=== PATIENT | male | born 1935 | race Two or more races ===

== ENCOUNTER 2024-03-08 12:06 | Emergency (ER) | payer MEDICARE, MEDICAID, SELFPAY ==
[2024-03-08 12:07] VITALS: BMI 24.5
[2024-03-08 12:13] VITALS: BP 108/68; PULSE 58; RESP 19; TEMP 36.7; O2SAT 97
--- NOTE | 2024-03-08 12:33 | XR_ITS ---
Examination: Humerus 2 views right Technique: Humerus, AP lateral 2 views Date and time of exam: March 08, 2024 1255 hrs. Indications: Patient fell yesterday with injury to the arm, arm pain. Findings: Acute impacted fracture humeral neck Shaft of the humerus intact Impression: Acute impacted fracture humeral neck
--- NOTE | 2024-03-08 12:33 | XR_ITS ---
Examination: AP chest single view Technique: Upright AP chest single view Exam date and time: February 07, 2024 1256 hrs. Comparison September 06, 2018 Indications: Chest pain after falling 2 days ago Findings: Mild enlargement cardiac contour No pneumothorax Minor subsegmental atelectasis right base Clavicles ribs appear grossly intact Impression: No pneumothorax
--- NOTE | 2024-03-08 12:33 | EKG_ITS ---
[facility] Test Date: 2024-03-08 Pat Name: JOSELIN MOLINA Department: Room: - Gender: Male [employer]: : 1935 Requested By: Venu Galvez Order Number: [id number] Reading MD: Venu Galvez Measurements Intervals [place] Rate: 56 P: NM: QRS: 19 QRSD: 82 T: 79 QT: 433 QTc: 419 Interpretive Statements ATRIAL FIBRILLATION WITH SLOW VENTRICULAR RESPONSE ABNORMAL RHYTHM ECG Compared to ECG 07/24/2022 09:52:48 No significant changes /store/S0/[id number]/ecg/[id number].pdf
--- NOTE | 2024-03-08 12:34 | PD.EDUPEX ---
Upper Extremity Injury RME/HPI General Chief Complaint: Extremity Injury, Upper Stated Complaint: RIGHT ARM PAIN S/P FALL 2 DAYS AGO Time Seen by Provider: 03/08/24 12:14 Arrival date/time: 03/08/24 12:06 RME / HPI RME / HPI narrative: 89-year-old male patient with significant history of Parkinson, gout, hypertension, chronic anemia, diabetes mellitus, was brought in by family for evaluation regarding fall. Patient sustained a fall about 2 days ago, hitting his right arm, resulting to bruising. It happened about 2 days ago. Patient was also noted to have chronic anemia according to the family. No vomiting blood no blood in the stool. Patient denies any LOC no nausea no vomiting. Patient is not taking any bladder. Related Data Home Medications ?Medication ?Instructions ?Recorded ?Confirmed carvedilol 3.125 mg tablet 6.25 mg PO BID 09/06/18 07/24/22 liothyronine 5 mcg tablet 5 mcg PO BID 09/06/18 07/24/22 losartan 100 mg tablet 100 mg PO QDAY 09/06/18 07/24/22 allopurinol 100 mg tablet 100 mg PO QDAY 07/24/22 07/24/22 carbidopa 25 mg tablet (Lodosyn) 25 mg PO Q8H 07/24/22 07/24/22 ciprofloxacin HCl 500 mg tablet 500 mg PO BID 07/24/22 07/24/22 (Cipro) doxazosin 4 mg tablet 4 mg PO QDAY 07/24/22 07/24/22 pioglitazone 15 mg tablet 15 mg PO QDAY 07/24/22 07/24/22 tamsulosin 0.4 mg capsule (Flomax) 0.4 mg PO BID 07/24/22 07/24/22 Previous Rx's ?Medication ?Instructions ?Recorded ferrous sulfate, dried 144 mg (45 144 mg PO TID #90 tabs 03/08/24 mg iron) tablet,extended release (Slow Release Iron) ibuprofen 600 mg tablet 600 mg PO TID PRN pain #30 tabs 03/08/24 Allergies Allergy/AdvReac Type Severity Reaction Status Date / Time No Known Allergies Allergy Unknown Verified 03/08/24 12:09 Review of Systems Review of Systems Narrative Review of Systems: Review of system reviewed and within normal limits except mentioned in HPI ED Exam Narrative Physical exam: VITAL SIGNS: Reviewed. GENERAL APPEARANCE: Alert and interactive, follows commands, no acute distress, HEAD AND FACE: Non-traumatic. ENT: PERRL, pale conjunctiva, eyelid no trauma, Mucous membrane moist. NECK: Supple, nontender, no nuchal rigidity. CHEST: No tenderness, no crepitus, no paradoxical movement, no retractions. LUNGS: Clear, well ventilated, symmetric, no rales, no wheezing, no ronchi, no stridor, good breath sounds bilaterally. HEART: Regular rate, regular rhythm, no murmur, no gallops. ABDOMEN: Soft, positive bowel sounds, nondistended, no guarding, nontender, no rebound, no masses, RECTAL: Deferred. GENITAL: Deferred. NEUROLOGICAL: Gross motor function intact sensory function intact, Appropriate for age. MUSCULOSKELETAL: low back nontender, full range of motion. EXTREMITIES: Right arm bruising, no deformity, with limitation range of motion. SKIN: Color pale, dry, no rash, no lacerations, no abrasions, no contusions. LYMPHATICS: Deferred. Course Quality Measures none Orders Category Date Time Status EKG (ED ONLY) *Do not use* NOW Care 03/08/24 12:33 Completed Occult Blood,Stool (Nursing) ONCE Care 03/08/24 12:33 Active sling [Splint / Immobilizer] STAT Care 03/08/24 15:[address] head/brain wo con Stat Exams 03/08/24 12:37 Completed EKG (ED Only) Stat Exams 03/08/24 12:33 Draft XR chest 1V Stat Exams 03/08/24 12:33 Completed XR humerus RT min 2V Stat Exams 03/08/24 12:33 Completed CBC Stat Lab 03/08/24 12:44 Completed Comprehensive Metabolic Panel Stat Lab 03/08/24 12:44 Completed Partial Thromboplastin Time Stat Lab 03/08/24 12:44 Completed Type and Screen Stat Lab 03/08/24 12:44 Completed Urinalysis Stat Lab 03/08/24 15:14 Completed Vital Signs Vital signs: Vital Signs Temperature 98.0 F 03/08/24 12:13 Pulse Rate 58 L 03/08/24 12:13 Respiratory Rate 19 03/08/24 12:13 Blood Pressure 108/68 03/08/24 12:13 Pulse Oximetry (%) 97 03/08/24 12:13 Oxygen Delivery Method Room Air 03/08/24 12:13 Extremity Injury MDM Narrative MDM Narrative:: 89-year-old male patient with significant history of Parkinson, gout, hypertension, chronic anemia, diabetes mellitus, was brought in by family for evaluation regarding fall. Patient sustained a fall about 2 days ago, hitting his right arm, resulting to bruising. It happened about 2 days ago. Patient was also noted to have chronic anemia according to the family. No vomiting blood no blood in the stool. Patient denies any LOC no nausea no vomiting. Patient is not taking any bladder. X-ray of the right humerus showed minimally displaced fracture of the humeral neck, I did not notice any dislocation of the shoulder joint. Patient was placed on a sling. Laboratory workup significant for hemoglobin of 8.9, hematocrit for 25.8. The rest of the labs unremarkable. Spoke with Dr. Gonzalez, orthopedic surgeon on-call, who agrees to have the patient follow-up in his clinic next week. Patient data External records reviewed:: None Clinical information provided by:: patient Social determinants that could affect healthcare access:: none Patient has the following chronic illnesses:: History of anemia, How is presenting disease/condition affected by chronic disease/condition?: exacerbated by Evaluation data The following diagnostics were reviewed and interpreted by me:: lab results Lab and/or radiology exams considered but not ordered:: None Interpretation Summary: X-ray of the right humerus showed minimally displaced fracture of the humeral neck, I did not notice any dislocation of the shoulder joint. Patient was placed on a sling. Laboratory workup significant for hemoglobin of 8.9, hematocrit for 25.8. The rest of the labs unremarkable. Medications / Prescriptions Medications or Prescriptions considered but not ordered:: None Medication administrations:: None Consultations Consultation(s) initiated? (list below): Yes Consultation #1 (Physician, Specialty, Details): Dr Gonzalez thank you Dr Gonzalez Diagnosis Upper Extremity Injury Differential Diagnosis: dislocation of shoulder, fracture of humerus and fracture of clavicle Most likely diagnosis given after review of the tests above:: Fracture of the right humeral neck, status post fall, chronic anemia Admission Indicated Admission indicated?: not indicated Explain why admission is indicated or not indicated:: Stable Admission Request Was there a request for admission?: No Disposition Plan Disposition Plan: Discharge Discharge Attestation Discharge Attestation: The patient and all family members were given an opportunity to ask questions and understood the discharge instructions. Discharge instructions specifically effects, indications for sooner follow up or return to the emergency department, and the expected course of current diagnosis. Patient condition: Stable Discharge Plan Plan Patient Disposition: HOME (Self Care) Disposition Comment: Stable Prescriptions/Referrals Prescriptions/Med Rec: New ibuprofen 600 mg tablet 600 mg PO TID PRN (Reason: pain) Qty: 30 0RF Slow Release Iron 144 mg (45 mg iron) tablet extended release 144 mg PO TID Qty: 90 0RF No Action liothyronine 5 mcg Tablet 5 mcg PO BID carvedilol 3.125 mg Tablet 6.25 mg PO BID losartan 100 mg Tablet 100 mg PO QDAY pioglitazone 15 mg Tablet 15 mg PO QDAY allopurinol 100 mg Tablet 100 mg PO QDAY ciprofloxacin HCl [Cipro] 500 mg Tablet 500 mg PO BID carbidopa [Lodosyn] 25 mg Tablet 25 mg PO Q8H tamsulosin [Flomax] 0.4 mg Capsule 0.4 mg PO BID doxazosin 4 mg Tablet 4 mg PO QDAY Referrals: Lisa Leslie [Primary Care Provider] - In 1 week Ricky Gonzalez MD [Physician] - In 1 week Problem List Clinical Impression: Fracture of neck of humerus, Fall, Chronic anemia Patient/Caregiver Discharge Instructions Education Materials: ED Fracture, Shoulder Additional Instructions: Thank you for the opportunity for serving you today. You are stable for discharged . You are advised to: Follow-up with your PCP in 1 to 2 days Follow-up with Dr. Gonzalez, orthopedic surgeon on-call, next week please call ahead for appointment Return to ED for worsening of symptoms Increase oral fluids Take medication as prescribed Print Language: Citizen Of [place] Stand Alone Forms: [employer] Award Info., Patient Portal Info Letter
--- NOTE | 2024-03-08 12:37 | XR_ITS ---
Examination: CT brain head without contrast. 2-D sagittal coronal reconstructions Date and time of exam:March 08, 2024 1358 hrs. Indications: Patient fell 2 days ago with injury to the head, head pain CTDI: vol (mGy):51 DLP: (mGycm):1089 Technique: Multiple CT axial sections of the brain have been obtained, 5 mm slice thickness. Contrast has not been administered. 2-D sagittal, coronal reconstructions have been obtained Low dose protocols were performed. One or more of the following dose reduction techniques were used; automated exposure control, adjustment of the mA and/or KV according to patient size, use of iterative reconstruction technique. Findings: No significant ventricular enlargement. 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 No mass effect or midline shift Basal cisterns are not remarkable. Fourth ventricle is midline. Cranial vault intact. Impression: Negative for acute hemorrhage, mass effect or midline shift
[2024-03-08 12:59] LABS: Basophils # (Auto) 0.1 Thou/mm3 (0.0-0.2); Basophils % (Auto) 1 % (0-2.5); Eosinophils # (Auto) 0.1 Thou/mm3 (0.0-0.5); Eosinophils % (Auto) 1 % (0-10); Hematocrit 25.8 % (41.0-53.0); Hemoglobin 8.9 g/dL (13.5-16.0); Immature Granulocytes % (Auto) 0 % (0-0); Immature Granulocytes Auto 0.02 Thou/mm3 (0.00-0.00); Lymphocytes # (Auto) 1.1 Thou/mm3 (1.0-4.8); Lymphocytes % (Auto) 17 % (10-50); Mean Corpuscular HGB Conc 34.5 g/dl (31.0-37.0); Mean Corpuscular Volume 96 fL (80-100); Monocytes # (Auto) 0.6 Thou/mm3 (0.0-0.8); Monocytes % (Auto) 9 % (0-12); Neutrophils # (Auto) 4.8 Thou/mm3 (1.8-7.7); Neutrophils % (Auto) 72 % (37-80); Nucleated Red Blood Cell % 0 /100 WBC (0); Platelet Count 142 Thou/mm3 (140-440); RDW Standard Deviation 51.5 fL (35.1-43.9); White Blood Count 6.7 Thou/mm3 (3.8-10.6)
[2024-03-08 13:13] LABS: Alanine Aminotransferase 12 U/L (10-49); Albumin/Globulin Ratio 1.7 (1.2-2.2); Alkaline Phosphatase 97 U/L (46-116); Anion Gap 6 (7-16); Aspartate Amino Transferase 19 U/L (0-34); BUN/Creatinine Ratio 28 Ratio (12-20); Bilirubin,Total 0.8 mg/dL (0.3-1.2); Blood Urea Nitrogen 36 mg/dL (9-23); Calcium 9.1 mg/dL (8.3-10.6); Calcium (Corrected) 9.1 mg/dL (8.5-10.1); Carbon Dioxide 26.4 mMol/L (20.0-31.0); Chloride 108 mMol/L (98-107); Creatinine (Component) 1.3 mg/dL (0.6-1.3); Estimated Creatinine Clearance 28.5 mL/min (>60); Globulin 2.3 gm/dL (2.3-3.5); Glucose 232 mg/dL (74-106); Osmolality,Calculated 294 (275-295); Potassium 3.9 mMol/L (3.4-5.1); Sodium 140 mMol/L (136-145); Total Protein 6.3 gm/dL (5.7-8.2); eGFR 53 See Note
[2024-03-08 15:27] LABS: Collection Type, Urine Clean Catch; Squamous Epithelial Cell,Urine 0 /hpf (0-5)
[2024-03-08 15:31] LABS: Bilirubin,Urine Negative (Negative); Blood,Urine Negative (Negative); Clarity,Urine Clear (Clear/Hazy); Color,Urine Yellow (Lt Yel-Yel); Glucose, Urine Negative (Negative); Ketones,Urine Negative (Negative); Leukocyte Esterase,Urine Negative (Negative); Nitrite,Urine Negative (Negative); PH,Urine 5.5 (5.0-7.0); Protein,Urine Trace (Neg - Trace); RBC,Urine 5 /hpf (0-3); Specific Gravity,Urine 1.022 (1.001-1.035); WBC,Urine 1 /hpf (0-5)
== END 2024-03-08 17:43 | disposition home or self-care (01) ==
PROVIDERS: Nurse Practitioner Family; Emergency Provider Emergency Medicine; PCP Family Medicine
DX: S42.211A Unspecified displaced fracture of surgical neck of right humerus, initial encounter for closed fracture (principal); S09.90XA Unspecified injury of head, initial encounter; D64.9 Anemia, unspecified; R07.9 Chest pain, unspecified; I48.91 Unspecified atrial fibrillation; I10 Essential (primary) hypertension; W19.XXXA Unspecified fall, initial encounter
CPT/HCPCS: 36415; 70450; 71045; 73060; 80053; 81001; 85025; 85730; 86850; 86900; 86901; 93005; 99284

== ENCOUNTER → 2024-03-28 | Outpatient (CLI) | payer MEDICARE, MEDICAID, SELFPAY ==
--- NOTE | 2024-03-28 11:30 | XR_ITS ---
Examination: CT right shoulder, without contrast. 2-D sagittal reconstructions. 2-D coronal reconstructions. 3-D reconstructions. Date and time of exam:March 28 2024-0 5 hours INDICATIONS: Patient fell 2 weeks ago with injury to the shoulder, shoulder pain CTDI: vol (mGy):9.9 DLP: (mGycm):211 Technique: Multiple 1.25 mm axial sections of the right shoulder without intravenous contrast have been obtained. 2-D sagittal and coronal reconstructions have been obtained. 3-D reconstructions have been obtained. Low dose protocols were performed. One or more of the following dose reduction techniques were used; automated exposure control, adjustment of the mA and/or KV according to patient size, use of iterative reconstruction technique. Findings: Acute impacted humeral neck fracture without significant displacement Fracture also involving the greater tuberosity humeral head without significant displacement No shoulder dislocation Clavicle intact No AC joint separation IMPRESSION: Acute fractures humeral head and neck
== END | disposition home or self-care (01) ==
PROVIDERS: PCP Family Medicine; Referring Provider Orthopaedic Surgery; Visit Provider Orthopaedic Surgery
DX: S42.211A Unspecified displaced fracture of surgical neck of right humerus, initial encounter for closed fracture (principal); W19.XXXA Unspecified fall, initial encounter
CPT/HCPCS: 73200

== ENCOUNTER 2024-05-25 18:03 | Emergency (ER) | payer MEDICARE, MEDICAID, SELFPAY ==
[2024-05-25 18:04] VITALS: BMI 24.4
[2024-05-25 18:13] VITALS: BP 133/60; PULSE 61; RESP 18; TEMP 37.2; O2SAT 97
--- NOTE | 2024-05-25 18:29 | XR_ITS ---
Examination: Ribs, bilateral, with PA chest, 7 views Technique: Chest PA, RIBS AP, RPO, LPO H ribs, AP coned lower ribs 5 views Exam date and time: May 25, 2024 1848 hrs. Indications: Patient fell today with injury to the chest, with bilateral rib pain Findings: Mild enlargement cardiac contour Prominent vascular congestion Opacity right base obscuring detail hemidiaphragm No pneumothorax No acute rib fractures Impression: Mild pneumonia versus pulmonary contusion right base, clinical correlation advised No pneumothorax No acute rib fractures depicted
--- NOTE | 2024-05-25 18:29 | XR_ITS ---
Examination: CT brain head without contrast. 2-D sagittal coronal reconstructions Date and time of exam:May 25, 2024 1830 hrs. Indications: Patient fell today hit the right side of the head, head pain CTDI: vol (mGy):51.4 DLP: (mGycm):1020 Technique: Multiple CT axial sections of the brain have been obtained, 5 mm slice thickness. Contrast has not been administered. 2-D sagittal, coronal reconstructions have been obtained Low dose protocols were performed. One or more of the following dose reduction techniques were used; automated exposure control, adjustment of the mA and/or KV according to patient size, use of iterative reconstruction technique. Findings: No significant ventricular enlargement. Right parietal frontal scalp swelling Intra-axial or extra-axial hemorrhage density is not seen. No mass effect or midline shift Basal cisterns are not remarkable. Fourth ventricle is midline. Cranial vault intact. Impression: Negative for acute hemorrhage, mass effect or midline shift
--- NOTE | 2024-05-25 18:29 | XR_ITS ---
Examination: CT cervical spine without contrast 2-D sagittal reconstructions 2-D coronal reconstructions 3-D reconstructions. Exam date and time:May 25, 2024 at 1838 hrs. Indications: Patient fell today with injury to the neck, neck pain CTDI:vol (mGy) 7.74 DLP: (mGycm) 151 Technique: Multiple 2 mm axial sections of the cervical spine have been obtained. The coronal and sagittal reconstructions have been obtained. 3-D reconstructions have been obtained. Low dose protocols were performed. One or more of the following dose reduction techniques were used; automated exposure control, adjustment of the mA and/or KV according to patient size, use of iterative reconstruction technique. Findings: Axial sections demonstrate intact base of the skull. C1 exhibit satisfactory relationship to the odontoid. No acute cervical vertebral body fracture seen. Alignment posterior spinous processes satisfactory. Impression: No acute cervical fracture.
--- NOTE | 2024-05-25 18:30 | PD.EDRME ---
Rapid Medical Screening Exam E Arrival date/time: 05/25/24 18:03 This is an 89-year-old male that comes in with complaints of fall and has a small hematoma to the back of his head. Per patient family member patient lost his balance and hit this stove with the back of his head. Patient had no loss of consciousness per family patient complains of just head pain. Patient has a history of Parkinson's diabetes, prostate cancer, high blood pressure. I have greeted and performed a focused initial assessment of this patient. Initial appropriate labs ordered at this time. A comprehensive ED assessment and evaluation of the patient and analysis of all test and completion of medical decision making process will be conducted by additional ED provider. Chief Complaint: Fall Time Seen by Provider: 05/25/24 18:11 Vital signs: Vital Signs Temperature 99.0 F 05/25/24 18:13 Pulse Rate 61 05/25/24 18:13 Respiratory Rate 18 05/25/24 18:13 Blood Pressure 133/60 H 05/25/24 18:13 Pulse Oximetry (%) 97 05/25/24 18:13 Oxygen Delivery Method Room Air 05/25/24 18:13
--- NOTE | 2024-05-25 20:04 | PD.EDFALL ---
ED Fall Injury RME/HPI General Chief Complaint: Fall Stated Complaint: FELL HITTING R) SIDE OF HEAD ON WOOD BURNING STOVE Time Seen by Provider: 05/25/24 18:11 Arrival date/time: 05/25/24 18:03 This is an 89-year-old male that comes in with complaints of fall and has a small hematoma to the back of his head. Per patient family member patient lost his balance and hit this stove with the back of his head. Patient had no loss of consciousness per family patient complains of just head pain. Patient has a history of Parkinson's diabetes, prostate cancer, high blood pressure. Limitations: no limitations RME / HPI RME / HPI Narrative: 05/25/24 18:03 This is an 89-year-old male that comes in with complaints of fall and has a small hematoma to the back of his head. Per patient family member patient lost his balance and hit this stove with the back of his head. Patient had no loss of consciousness per family patient complains of just head pain. Patient has a history of Parkinson's diabetes, prostate cancer, high blood pressure. I have greeted and performed a focused initial assessment of this patient. Initial appropriate labs ordered at this time. A comprehensive ED assessment and evaluation of the patient and analysis of all test and completion of medical decision making process will be conducted by additional ED provider. Related Data Home Medications ?Medication ?Instructions ?Recorded ?Confirmed carvedilol 3.125 mg tablet 6.25 mg PO BID 09/06/18 07/24/22 liothyronine 5 mcg tablet 5 mcg PO BID 09/06/18 07/24/22 losartan 100 mg tablet 100 mg PO QDAY 09/06/18 07/24/22 allopurinol 100 mg tablet 100 mg PO QDAY 07/24/22 07/24/22 carbidopa 25 mg tablet (Lodosyn) 25 mg PO Q8H 07/24/22 07/24/22 ciprofloxacin HCl 500 mg tablet 500 mg PO BID 07/24/22 07/24/22 (Cipro) doxazosin 4 mg tablet 4 mg PO QDAY 07/24/22 07/24/22 pioglitazone 15 mg tablet 15 mg PO QDAY 07/24/22 07/24/22 tamsulosin 0.4 mg capsule (Flomax) 0.4 mg PO BID 07/24/22 07/24/22 Previous Rx's ?Medication ?Instructions ?Recorded ferrous sulfate, dried 144 mg (45 144 mg PO TID #90 tabs 03/08/24 mg iron) tablet,extended release (Slow Release Iron) ibuprofen 600 mg tablet 600 mg PO TID PRN pain #30 tabs 03/08/24 amoxicillin 875 mg-potassium 1 tab PO Q12H #14 tabs 05/25/24 clavulanate 125 mg tablet Allergies Allergy/AdvReac Type Severity Reaction Status Date / Time No Known Allergies Allergy Unknown Verified 05/25/24 18:07 Review of Systems Review of Systems Systems Reviewed: All systems reviewed, normal except as documented Past Medical History Past Medical History Comments PMH COMMENT: see hpi ED Exam General Limitations: Present no limitations General appearance: Present alert and in no apparent distress Head Head exam: Present other (Small nickel sized hematoma to the back of the head. No open laceration noted. No bleeding noted.) Eye Eye exam: Present normal appearance, PERRL and EOMI ENT ENT exam: Present normal exam, normal oropharynx and mucous membranes moist Neck Neck exam: Present normal inspection, full ROM and trachea midline Chest Chest inspection: Present normal inspection and symmetric chest wall rise Respiratory Respiratory exam: Present normal lung sounds bilaterally Cardiovascular Cardiovascular exam: Present regular rate Abdominal Exam Abdominal exam: Present soft Extremities Exam Extremities exam: Present normal inspection and full ROM Back Exam Back exam: Present normal inspection and full ROM Neurological Exam Neurological exam: Present alert and oriented X3 Psychiatric Psychiatric exam: Present normal affect and normal mood Skin Skin exam: Present warm and dry Course Quality Measures none Orders Category Date Time Status CT cervical spine wo con Stat Exams 05/25/24 18:[address] head/brain wo con Stat Exams 05/25/24 18:29 Completed XR ribs BI min 4V w CXR1V Stat Exams 05/25/24 18:29 Completed cefTRIAXone [Rocephin] Med 05/25/24 20:18 Discontinued 1,000 mg .ROUTE .STK-MED ONE cefTRIAXone [Rocephin] 1,000 mg Med 05/25/24 20:05 Discontinued Lidocaine 1% 20 ml [Xylocaine 1% 20 ML] 2.1 ml IM X1 Vital Signs Vital signs: Vital Signs Temperature 99.0 F 05/25/24 18:13 Pulse Rate 61 05/25/24 18:13 Respiratory Rate 18 05/25/24 18:13 Blood Pressure 133/60 H 05/25/24 18:13 Pulse Oximetry (%) 97 05/25/24 18:13 Oxygen Delivery Method Room Air 05/25/24 18:13 Fall MDM Narrative MDM Narrative:: cervical ct : Findings: Axial sections demonstrate intact base of the skull. C1 exhibit satisfactory relationship to the odontoid. No acute cervical vertebral body fracture seen. Alignment posterior spinous processes satisfactory. Impression: No acute cervical fracture. ct head: Findings: No significant ventricular enlargement. Right parietal frontal scalp swelling Intra-axial or extra-axial hemorrhage density is not seen. No mass effect or midline shift Basal cisterns are not remarkable. Fourth ventricle is midline. Cranial vault intact. Impression: Negative for acute hemorrhage, mass effect or midline shift ribs x rays: Findings: Mild enlargement cardiac contour Prominent vascular congestion Opacity right base obscuring detail hemidiaphragm No pneumothorax No acute rib fractures Impression: Mild pneumonia versus pulmonary contusion right base, clinical correlation advised No pneumothorax No acute rib fractures depicted Spoke to patient's daughter and patient at length. Patient already has an appointment to see a photogeologist. I spoke to patient's family and let them know that the rib x-ray shows possible pulmonary contusion possible pneumonia. Patient's daughter would rather treat the patient with antibiotics for pneumonia. Will treat and have patient follow-up with primary provider in 1 to 2 days. Patient already has a follow-up appointment with the photogeologist. Come back to the emergency room if symptoms change or worsen. Patient data External records reviewed:: [facility] previous records Clinical information provided by:: patient Social determinants that could affect healthcare access:: none Patient has the following chronic illnesses:: see hpi How is presenting disease/condition affected by chronic disease/condition?: uneffected by Evaluation data The following diagnostics were reviewed and interpreted by me:: radiology exam(s) Lab and/or radiology exams considered but not ordered:: see note Interpretation Summary: see note Medications / Prescriptions Medications or Prescriptions considered but not ordered:: none Medication administrations:: Medication Administration History Discontinued Medications Ceftriaxone Sodium (Ceftriaxone Sod Inj 1,000 Mg Vial) Confirm Administered Dose 1,000 mg .ROUTE .STK-MED ONE Stop: 05/25/24 20:19 Last Admin: 05/25/24 20:28 Dose: Not Given Documented By: DB Non-Admin Reason: Duplicate Medication on eMAR Ceftriaxone Sodium 1,000 mg/ (Lidocaine HCl 2.1 ml) 0 mg IM X1 ONE Stop: 05/25/24 20:06 Last Admin: 05/25/24 20:23 Dose: 1,000 mg Documented By: ANEUDY see mar Consultations Consultation(s) initiated? (list below): No Diagnosis Fall Differential Diagnosis: other (fall, pneumonia, hematoma to back of head ) Most likely diagnosis given after review of the tests above:: hematoma to head, pneumonia, fall Admission Indicated Admission indicated?: not indicated Admission Request Was there a request for admission?: No Disposition Plan Disposition Plan: Discharge Discharge Attestation Discharge Attestation: The patient and all family members were given an opportunity to ask questions and understood the discharge instructions. Discharge instructions specifically effects, indications for sooner follow up or return to the emergency department, and the expected course of current diagnosis. Patient condition: Stable Discharge Plan Plan Patient Disposition: HOME (Self Care) Patient condition on transfer: Stable Prescriptions/Referrals Prescriptions/Med Rec: New amoxicillin-pot clavulanate 875-125 mg tablet 1 tab PO Q12H Qty: 14 0RF No Action liothyronine 5 mcg Tablet 5 mcg PO BID carvedilol 3.125 mg Tablet 6.25 mg PO BID losartan 100 mg Tablet 100 mg PO QDAY pioglitazone 15 mg Tablet 15 mg PO QDAY allopurinol 100 mg Tablet 100 mg PO QDAY ciprofloxacin HCl [Cipro] 500 mg Tablet 500 mg PO BID carbidopa [Lodosyn] 25 mg Tablet 25 mg PO Q8H tamsulosin [Flomax] 0.4 mg Capsule 0.4 mg PO BID doxazosin 4 mg Tablet 4 mg PO QDAY ibuprofen 600 mg tablet 600 mg PO TID PRN (Reason: pain) Qty: 30 0RF Slow Release Iron 144 mg (45 mg iron) tablet extended release 144 mg PO TID Qty: 90 0RF Referrals: No Primary/Family,Physician [Primary Care Provider] - In 1 week Problem List Clinical Impression: Pneumonia, Head injury Patient/Caregiver Discharge Instructions Discharge Activity: activity as tolerated Education Materials: ED Head Injury (Adult), ED Pneumonia (Adult) Additional Instructions: Follow up with primary provider in 1-2 days. Come back to ED if symptoms change or worsen Print Language: [place] Stand Alone Forms: [facility] Award Info., Patient Portal Info Letter PA/PIG CASTING MACHINE OPERATOR Supervising Physician PA/PIG CASTING MACHINE OPERATOR Supervising Physician: [email or web address]
[2024-05-25] MEDS: cefTRIAXone 1,000 MG, LIDOCAINE 1% 20 ML 2.1 ML IM (20:23)
== END 2024-05-25 20:30 | disposition home or self-care (01) ==
PROVIDERS: Emergency Provider Emergency Medicine
DX: S00.03XA Contusion of scalp, initial encounter (principal); W22.8XXA Striking against or struck by other objects, initial encounter; J18.9 Pneumonia, unspecified organism; E11.9 Type 2 diabetes mellitus without complications; G20.A1 Parkinson's disease without dyskinesia, without mention of fluctuations; Z85.46 Personal history of malignant neoplasm of prostate; R07.81 Pleurodynia
CPT/HCPCS: 70450; 71111; 72125; 96372; 99284; J0696; J3490

== ENCOUNTER → 2024-07-02 | Outpatient (CLI) | payer MEDICARE, MEDICAID, SELFPAY ==
[2024-07-02 10:32] LABS: Basophils % (Auto) 1 % (0-2.5); Eosinophils # (Auto) 0.2 Thou/mm3 (0.0-0.5); Eosinophils % (Auto) 5 % (0-10); Hematocrit 29.5 % (41.0-53.0); Immature Granulocytes % (Auto) 1 % (0-0); Immature Granulocytes Auto 0.02 Thou/mm3 (0.00-0.00); Lymphocytes # (Auto) 1.3 Thou/mm3 (1.0-4.8); Lymphocytes % (Auto) 32 % (10-50); Mean Corpuscular HGB Conc 33.9 g/dl (31.0-37.0); Mean Corpuscular Hemoglobin 33.2 pg (25.0-35.0); Mean Corpuscular Volume 98 fL (80-100); Monocytes # (Auto) 0.3 Thou/mm3 (0.0-0.8); Monocytes % (Auto) 8 % (0-12); Neutrophils # (Auto) 2.3 Thou/mm3 (1.8-7.7); Neutrophils % (Auto) 55 % (37-80); Nucleated Red Blood Cell % 0 /100 WBC (0); Platelet Count 154 Thou/mm3 (140-440); RDW Standard Deviation 52.5 fL (35.1-43.9); Red Blood Count 3.01 Miln/mm3 (4.50-5.90); White Blood Count 4.2 Thou/mm3 (3.8-10.6)
[2024-07-02 10:35] LABS: INR 1.4 (0.9-1.3); Partial Thromboplastin Time 27.4 Seconds (22.0-36.0); Prothrombin Time 14.9 Seconds (9.0-12.2)
[2024-07-02 10:39] LABS: Glucose Estimated Average 148 mg/dL (80-131); Hemoglobin A1C 6.8 % Hgb (4.8-6.0)
[2024-07-02 11:03] LABS: Alanine Aminotransferase 8 U/L (10-49); Albumin, Serum 3.8 gm/dL (3.4-4.8); Albumin/Globulin Ratio 1.7 (1.2-2.2); Alkaline Phosphatase 103 U/L (46-116); Anion Gap 8 (7-16); Aspartate Amino Transferase 19 U/L (0-34); BUN/Creatinine Ratio 25 Ratio (12-20); Bilirubin,Total 0.8 mg/dL (0.3-1.2); Blood Urea Nitrogen 35 mg/dL (9-23); Calcium (Corrected) 9.2 mg/dL (8.5-10.1); Cardiac Risk Estimate 3.1 RATIO (4.0-6.7); Chloride 110 mMol/L (98-107); Cholesterol 129 mg/dL (132-200); Creatinine (Component) 1.4 mg/dL (0.6-1.3); Free T3 2.4 pg/mL (2.3-4.2); Free T4 (Free Thyroxine) 0.97 ng/dL (0.89-1.76); Globulin 2.3 gm/dL (2.3-3.5); Glucose 108 mg/dL (74-106); HDL Cholesterol 42 mg/dL (40-60); LDL Cholesterol,Calculated 69 mg/dL (0-130); Osmolality,Calculated 299 (275-295); Potassium 4.2 mMol/L (3.4-5.1); Sodium 146 mMol/L (136-145); Thyroid Stimulating Hormone 1.64 uIU/mL (0.55-4.78); Total Protein 6.1 gm/dL (5.7-8.2); Triglycerides 92 mg/dL (30-150); Uric Acid 5.1 mg/dL (3.7-9.2); eGFR 48 See Note
[2024-07-02 12:12] LABS: Sed Rate (ESR) 6 mm/hr (0-20)
[2024-07-07 06:45] LABS: hs-CRP* <0.2 mg/L
== END | disposition home or self-care (01) ==
PROVIDERS: PCP Family Medicine; Referring Provider Ophthalmology; Visit Provider Ophthalmology
DX: Z00.01 Encounter for general adult medical examination with abnormal findings (principal); Z13.89 Encounter for screening for other disorder; R53.83 Other fatigue; I10 Essential (primary) hypertension; E11.65 Type 2 diabetes mellitus with hyperglycemia; H02.101 Unspecified ectropion of right upper eyelid
CPT/HCPCS: 36415; 80053; 80061; 81001; 82043; 82570; 83036; 84153; 84439; 84443; 84481; 84550; 85025; 85610; 85652; 85730; 86141

== ENCOUNTER → 2024-07-03 | Outpatient (CLI) | payer MEDICARE, MEDICAID, SELFPAY ==
[2024-07-03 16:47] LABS: Collection Type, Urine Clean Catch
[2024-07-03 17:46] LABS: Bacteria,Urine Rare; Bilirubin,Urine Negative (Negative); Blood,Urine Negative (Negative); Clarity,Urine Clear (Clear/Hazy); Color,Urine Yellow (Lt Yel-Yel); Glucose, Urine Negative (Negative); Hyaline Casts,Urine 1 /hpf (0-1); Ketones,Urine Negative (Negative); Leukocyte Esterase,Urine Negative (Negative); Nitrite,Urine Negative (Negative); PH,Urine 5.5 (5.0-7.0); Protein,Urine Negative (Neg - Trace); RBC,Urine 3 /hpf (0-3); Specific Gravity,Urine 1.019 (1.001-1.035); Squamous Epithelial Cell,Urine < 1 /hpf (0-5); Urobilinogen,Urine Negative mg/dL (0.0-1.0); WBC,Urine 1 /hpf (0-5)
[2024-07-03 17:48] LABS: Creatinine MALB Rnd Ur 120 mg/dL (30-125); Microalbumin Creat Ratio 15 mg/gCrea (<30); Microalbumin, Random Urine 18 mg/L (0-300)
== END | disposition home or self-care (01) ==
LOC: SLDO 16:38
PROVIDERS: Referring Provider Ophthalmology; Visit Provider Ophthalmology
DX: Z00.01 Encounter for general adult medical examination with abnormal findings (principal); R53.83 Other fatigue; I10 Essential (primary) hypertension; Z13.89 Encounter for screening for other disorder; E11.65 Type 2 diabetes mellitus with hyperglycemia
CPT/HCPCS: 81001; 82043; 82570